=== PATIENT | female | born 1975 | race Caucasian/White ===

== ENCOUNTER 2016-12-15 14:02 | Emergency (ER) | payer BC ==
[~2016-12-15] VITALS: Ht 152.4 cm; Wt 68.0 kg
[~2016-12-15 14:02] MED LIST: PREDNISONE 20MG20 MG PO; TESSALON PERLE100 MG PO; ZITHROMAX Z PA250 MG PO
[2016-12-15 14:50] LABS: UTC STREP SCREEN NOT DETECTED (NOTDETECTED)
[2016-12-15] MEDS ORDERED: FLONASE 50 MCG16 GM (14:57)
[2016-12-15] MEDS ORDERED: BROMFED DM COU118 ML PO (14:57)
--- NOTE | 2016-12-15 14:57 | Urgent Treatment Center Report ---
History of Present Issue Date/Time Seen by Provider 12/15/16 0272 Visit Reason Pt arrived:Walked Presenting Problem:COUGH, ST Location if Accident: Onset of symptoms date/time:/ or onset unknown for:MEDICAL HX UNKNOWN Have you (or family members/close friends) recently traveled outside the [place]? N If Yes, where/when: Have you had exposure to infectious disease within the past month? TB? Other? Specify: State that she has had cough and sinus congestion for several days now State that she feels like it is running down the back of her throat and making her cough State that her throat feels irritated Denies fever, denies nausea State that she wanted to come in and get out and make sure her children had not packed in the strep throat ALLERGIES Coded Allergies: Penicillins (Mild, 04/15/15) Home Medications Active Scripts Prednisone (Prednisone 20MG) 20 MG PO BID #10 TAB Prov: 04/15/15 Azithromycin (Zithromycin (Z-ANA MARIA) 250MG Tab) 250 MG PO DAILY #6 TAB Prov: 04/15/15 BENZONATATE (Benzonatate) 100 MG PO TID #15 CAP Prov: 04/15/15 History Medical History General CAD? No Angina: No [place]: No Hypertension? No Hyperlipidemia? No CHF? No DVT? No PE? No COPD? No Asthma? No Anemia? No GERD? No Gastric ulcers? No GI Bleed? No Hernia? No Thyroid Problems? No Hypothyroidism? No CVA? No Seizures? No Diabetes? No Renal Insuffiency? No UTI? No Stones? No BPH? No GB Disease: No Nephritic Syndrome? No Asplenia? No Hepatitis? No Sickle Cell Disease? No Arthritis? No Migraines? No Cataracts? No Glaucoma? No MRSA? No HIV? No TB? No Anxiety? No Depression? No Cancer? No Immunization HX DT/Tetanus Unknown Surgical Hx Previous Surgery?Y Tubal Ligation Social History Smoking Hx Smoker: Never Smoker Tobacco: No Alcohol Alcohol: No Review of Systems All Other Systems Reviewed and Negative Constitutional chills ENT nose congestion, throat pain. Respiratory cough, denies shortness of breath, denies wheezing Physical Exam Vital Signs Vital Signs Date Time Temp Pulse Resp B/P Pulse O2 O2 Flow FiO2 Ox Delivery Rate 12/15 1426 97.9 96 20 157/86 99 General Appearance normal appearance, WD/WN, no apparent distress, Sitting in exam chair playing on phone talking with her daughter Ear, Nose, Throat Throat mildly red, no exudate, reports clear drainage from nose Respiratory Status Yes: trachea midline, chest symmetrical, non tender chest. No: respiratory distress. Cardiovascular normal exam, regular rate/rhythm, no peripheral edema Neurologic alert, normal exam, oriented x 3 Medical Decision Making LABS/Meds/Orders Pt receiving controlled substance in ED? No Results/Orders Laboratory Tests 12/15/16 1433: Influenza Type A Ag NOT DETECTED, Influenza Type B Ag NOT DETECTED, Group A Strep Screen NOT DETECTED Orders Procedure Date/time Status UTC STREP SCREEN 12/15 143 Complete UTC FLU A,B 12/15 143 Complete Departure Departure Time of Disposition 1455 Disposition DC Home or Self Care(routine) Clinical Impression Primary Impression: Viral upper respiratory illness Condition STABLE Referrals JI MARINO (Family) Patient Instructions Cough, DI for Cough -- Adult, DI for Nasal Congestion, Sore Throat Additional Instructions * Monitor Temp. Tylenol and/or Ibuprofen as needed. ER if fever is no less than 101 despite alternating Tylenol and Ibuprofen * Encourage fluids, water, Gatorade, powerade, pedialyte if infant/toddler/or child * Warm salt water gargles for throat irritation *Warm fluids *Sore throat lozenges *Sleep elevated *humidifier or vaporizer Lots of rest Increase fluids, water, Gatorade, powerade *Flonase 2 sprays each nostril daily but may take 2-3 days to notice improvement with it *Bromfed may cause drowsiness. Know how it effect you or your child. Before driving, caring for small children or sending your child to school *Your throat swab was sent to lab for culture. Those results area typically sent to your primary care physician. Be sure to follow up in 2-3 days if no improvement so they can review those results and treat if necessary If you dont have primary care I recommend you get one, but in the mean time you will have to return to a walk in clinic Follow up IMMEDIATELY for new or worsening of symptoms OR no noticeable improvement over the next 48-72 hours. 911 immediately for any life threatening symptoms such as chest pain or difficulty breathing Discharge Counseling Counseled pt/family regarding diagnosis, test results, medications/RX, home care, follow up needs Prescriptions Current Visit Scripts Fluticasone Propionate (Flonase 50 Mcg Nasal [place]) 2 SPRAY NA DAILY #1 BOT D-METHORPHAN HB/P-EPD HCL/BPM (Bromfed Dm Cough Syrup) 10 ML PO Q4HP PRN cough #150 SYR at 9858
[2016-12-15 15:13] VITALS: BP 142/88
== END 2016-12-15 15:13 | disposition home or self-care (01) ==
LOC: UTC 14:02
PROVIDERS: Nurse Practitioner
DX: J06.9 Acute upper respiratory infection, unspecified (principal); Z88.0 Allergy status to penicillin

== ENCOUNTER 2017-01-16 17:50 | Emergency (ER) | payer SELFPAY ==
[~2017-01-16] VITALS: Ht 152.4 cm; Wt 65.8 kg
[~2017-01-16 17:50] MED LIST changes: +BROMFED DM COU118 ML PO; +FLONASE 50 MCG16 GM
--- OUTSIDE RECORDS SUMMARY | 2017-01-16 18:06 | External Medical Summary Rpt | CCD ---
Author Author , [employer]ER Address Unknown Phone [email or web address] Purpose Continuity of Care Document - 12-15-2016 through 2016 Problems Code Diagnosis DOS Provider Status J40 BRONCHITIS, NOT SPECIFIED ACUTE OR CHRONIC K52.9 NONINFECTIV E GASTROENTER ITIS AND COLITIS, UNSPECIFIED R09.1 PLEURISY Results Labs Lab Lab Date Result Refere Interp Status Commen Order Detail nces retati t Range on Screening group A Streptococcus antigen (12-15-2016 14:33) Screeni NOT NOTDETE complet ng 017 DETECTE CTED ed group A 14:33 D NOT DETECTE Strepto D L coccus antigen Comment: LOT # [id number] EXP DATE @2018-10-10 Rapid influenza A and B antigen detectio (12-15-2016 14:33) INFLUEN NOT NOT complet ZA B 017 DETECTE DETECTD ed ANTIGEN 14:33 D Comment: LOT # @[id number] EXP DATE @2018-05-07 Influen NOT NOT complet za A ag 017 DETECTE DETECTD ed QL 14:33 D NOT DETECTE D L
--- OUTSIDE RECORDS SUMMARY | 2017-01-16 18:06 | External Medical Summary Rpt | CCD ---
Author Author [employer] Organization [employer] Address Unknown Phone Unavailable Purpose Continuity of Care Document - through 2016
--- OUTSIDE RECORDS SUMMARY | 2017-01-16 18:06 | External Medical Summary Rpt | CCD ---
Demographics Preferred Language Croatian Marital Status Unknown Taoism Affiliation Unknown Race Unknown Ethnic Group Unknown Author Author , SUMMER [employer]ER Address Unknown Phone Immunization No patient found.
--- OUTSIDE RECORDS SUMMARY | 2017-01-16 18:06 | External Medical Summary Rpt | CCD ---
Author Author , SUMMER [employer]ELER Address Unknown Phone [email or web address] Purpose Continuity of Care Document - 12-15-2016 [...] D L coccus antigen Comment: LOT # @[id number] EXP DATE @2018-10-10 Rapid influenza A and B antigen detectio (12-15-2016 14:33) INFLUEN NOT NOT complet ZA B 017 DETECTE DETECTD ed ANTIGEN 14:33 D Comment: LOT # @[id number] EXP DATE @2018-05-07 Influen NOT NOT complet za A ag 017 DETECTE DETECTD ed QL 14:33 D NOT DETECTE D L
--- OUTSIDE RECORDS SUMMARY | 2017-01-16 18:06 | External Medical Summary Rpt | CCD ---
Demographics Preferred Language Occitan Marital Status Unknown Lutheran Affiliation Unknown Race Unknown Ethnic Group Unknown Author Author , SUMMER WHEELER Address Unknown Phone Immunization No patient found.
--- NOTE | 2017-01-16 18:44 | Urgent Treatment Center Report ---
History of Present Issue Date/Time Seen by Provider 01/16/177 Visit Reason Pt arrived:Walked Presenting Problem:PT C/O FEVER SINCE TUESDAY, SORE THROAT, BODY ACHES, HEAD COGESTION, COUGH. Location if Accident: Onset of symptoms date/time:/ or onset unknown for:MEDICAL HX UNKNOWN Have you (or family members/close friends) recently traveled outside the [place]? N If Yes, where/when: Have you had exposure to infectious disease within the past month? TB? Other? Specify: Patient state that she has been having flu like symptoms, fever, chills, sore throat, body aches cough and head congestion now for about 5 days State that today she felt worse. State that temp earlier was 102.2 state that she has been taking Motrin to help with fever and she came in this evening to get checked out ALLERGIES Coded Allergies: Penicillins (Mild, 04/15/15) Home Medications Reported Medications No Known Home Medications History Medical History General CAD? No Angina: No [place]: No Hypertension? No Hyperlipidemia? No CHF? No DVT? No PE? No COPD? No Asthma? No Anemia? No GERD? No Gastric ulcers? No GI Bleed? No Hernia? No Thyroid Problems? No Hypothyroidism? No CVA? No Seizures? No Diabetes? No Renal Insuffiency? No UTI? No Stones? No BPH? No GB Disease: No Nephritic Syndrome? No Asplenia? No Hepatitis? No Sickle Cell Disease? No Arthritis? No Migraines? No Cataracts? No Glaucoma? No MRSA? No HIV? No TB? No Anxiety? No Depression? No Cancer? No Immunization HX DT/Tetanus Unknown Surgical Hx Previous Surgery?Y Tubal Ligation [employer] Hx LMP 2 Weeks Ago Social History Smoking Hx Smoker: Never Smoker Tobacco: No Alcohol Alcohol: No Review of Systems All Other Systems Reviewed and Negative Constitutional chills, fever ENT ear pain, nose congestion, throat pain. Respiratory cough Physical Exam Vital Signs Vital Signs Date Time Temp Pulse Resp B/P Pulse O2 O2 Flow FiO2 Ox Delivery Rate 01/16 1802 99.6 89 20 132/89 99 General Appearance Appears ill, pale in color eyes watering sitting on exam table Ear, Nose, Throat sinus pain/drainage, nasal congestion, Tenderness noted frontal sinsus, throat red, irritated no exudate Respiratory Status Yes: trachea midline, chest symmetrical, non tender chest. No: respiratory distress. Lung Sounds bilateral: normal breath sounds, lungs clear. Cardiovascular normal exam, regular rate/rhythm, no peripheral edema Neurologic alert, normal exam, oriented x 3 Medical Decision Making LABS/Meds/Orders Pt receiving controlled substance in ED? No Results/Orders Laboratory Tests 01/16/171838: Influenza Type A Ag NOT DETECTED, Influenza Type B Ag NOT DETECTED Orders Procedure Date/time Status [facility] FLU A,B 01/16 1839 Complete Departure Departure Time of Disposition 1857 Disposition DC Home or Self Care(routine) Clinical Impression Primary Impression: Sinusitis Qualifiers: Sinusitis location: unspecified location Chronicity: acute Recurrence: not specified as recurrent Qualified Code: J01.90 - Acute sinusitis, unspecified Condition STABLE Referrals Alex YU,Aureliano (Family): 3 Days-Call Office Patient Instructions DI for Fever (Symptom) -- Adult, DI for Nasal Congestion, Sinus Headache, Sinusitis, Sore Throat Additional Instructions * Monitor Temp. Tylenol and/or Ibuprofen as needed. ER if fever is no less than 101 despite alternating Tylenol and Ibuprofen * Encourage fluids, water, Gatorade, powerade, pedialyte if infant/toddler/or child * Warm salt water gargles for throat irritation *Warm fluids *Sore throat lozenges *Sleep elevated *humidifier or vaporizer Lots of rest Increase fluids, water, Gatorade, powerade *Flonase 2 sprays each nostril daily but may take 2-3 days to notice improvement with it *Bromfed may cause drowsiness. Know how it effect you or your child. Before driving, caring for small children or sending your child to school *Your throat swab was sent to lab for culture. Those results area typically sent to your primary care physician. Be sure to follow up in 2-3 days if no improvement so they can review those results and treat if necessary If you dont have primary care I recommend you get one, but in the mean time you will have to return to a walk in clinic Follow up IMMEDIATELY for new or worsening of symptoms OR no noticeable improvement over the next 48-72 hours. 911 immediately for any life threatening symptoms such as chest pain or difficulty breathing Discharge Counseling Counseled pt/family regarding diagnosis, test results, medications/RX, home care, follow up needs Prescriptions Current Visit Scripts Azithromycin (Zithromycin (Z-LUIS) 250MG Tab) 250 MG PO DAILY #6 TAB TAKE TWO (2) TABLETS ON DAY 1, THEN ONE (1) TABLET DAY #2 THRU #5 Methylprednisolone (Medrol Dose Luis) 4 MG PO UD #1 LUIS TAKE DIRECTED ON PACKAGING D-METHORPHAN HB/P-EPD HCL/BPM (Bromfed Dm Cough Syrup) 10 ML PO Q4HP PRN cough #150 SYR Fluticasone Propionate (Flonase 50 Mcg Nasal [place]) 2 SPRAY NA DAILY #1 BOT at 1900
[2017-01-16] MEDS ORDERED: BROMFED DM COU118 ML PO (18:59)
[2017-01-16] MEDS ORDERED: MEDROL 4MG. DOSE4 MG PO (18:59)
[2017-01-16] MEDS ORDERED: ZITHROMAX Z PA250 MG PO (18:59)
[2017-01-16] MEDS ORDERED: FLONASE 50 MCG16 GM (19:00)
[2017-01-16 19:02] VITALS: BP 132/89
[2017-01-28] MEDS ORDERED: MACROBID100 M3 PO (17:55)
== END 2017-01-16 19:02 | disposition home or self-care (01) ==
LOC: UTC 17:50
DX: J01.90 Acute sinusitis, unspecified (principal); Z88.0 Allergy status to penicillin